=== PATIENT | male | born 1975 | race Caucasian/White ===

== ENCOUNTER 2017-12-25 03:23 | Emergency (ER) | payer BC ==
[~2017-12-25] VITALS: Ht 172.7 cm; Wt 77.7 kg
[~2017-12-25 03:23] MED LIST: DOCUSATE SODIU100 MG PO; FLEXERIL10 MG PO; IBUPROFEN800 MG PO; MORPHINE SULFAT15 M1 PO; NOHOMEMEDS; PANTOPRAZOLE SO40 MG PO; PREDNISONE10 MG PO
[2017-12-25] MEDS ORDERED: NAPROSYN500 MG PO (06:58)
[2017-12-25] MEDS ORDERED: KEFLEX500 MG PO (06:58)
[2017-12-25] MEDS ORDERED: NORCO 5/3251 TABLET PO (06:58)
[2017-12-25 07:20] VITALS: BP 135/92
== END 2017-12-25 07:23 | disposition home or self-care (01) ==
LOC: EME 03:23
DX: S62.621B Displaced fracture of middle phalanx of left index finger, initial encounter for open fracture (principal); W23.0XXA Caught, crushed, jammed, or pinched between moving objects, initial encounter; F17.200 Nicotine dependence, unspecified, uncomplicated
CPT/HCPCS: 73140; 99281; 99285; C1769; J0690; J3010; J7030